=== PATIENT | female | born 1965 | race Two or more races ===

== ENCOUNTER 2017-07-10 10:29 | Emergency (ER) | payer MEDICAID ==
[~2017-07-10] VITALS: Ht 162.6 cm; Wt 72.6 kg
[~2017-07-10 10:29] MED LIST: ASP81EC PO; ATO40T PO; ENAL20TA93 PO; GABA100C9 PO; HCTZ25T PO; METF-370 PO; METO25TA62 PO; SITA25TA3 PO
[2017-07-10] MEDS ORDERED: cefTRIAXone SOD 1,000 MG VL IM ONE (12:45)
[2017-07-10 12:46] VITALS: BP 156/100
== END 2017-07-10 13:11 | disposition home or self-care (01) ==
LOC: ER 10:29
DX: J02.9 Acute pharyngitis, unspecified (principal); I10 Essential (primary) hypertension; E11.9 Type 2 diabetes mellitus without complications; Z79.82 Long term (current) use of aspirin
CPT/HCPCS: 96372; 99283; J0696